=== PATIENT | male | born 1960 | race Caucasian/White ===

== ENCOUNTER 2017-10-10 20:02 | Emergency (ER) | payer SELFPAY ==
[2017-10-10] MEDS ORDERED: RINGERS SOLUTION,LACTATED 1,000 ML IV ONE (20:11)
--- NOTE | 2017-10-10 20:18 | ER Document Report ---
ED Cardiac - General Chief Complaint: Palpitations Stated Complaint: FAST HEARTRATE Time Seen by Provider: 10/10/17 20:11 Notes: Patient is a 57-year-old male with past medical history of tobacco abuse and obesity who presents with palpitations. Patient states for the past half hour he has had palpitations but denies any additional symptoms. He checked his heart rate at home and found it to be 180-200 bpm. He states he has had one similar episode in the past and was diagnosed with supraventricular tachycardia. He states at that time he had a received adenosine to break the rhythm. He denies any associated chest pain, shortness of breath nausea, vomiting or syncope since onset of palpitations. He does drink caffeinated beverages and does continue to smoke cigarettes but denies any increase in today 's amount versus is normal. He has not discussed with primary care doctor regarding today's symptoms or his history of SVT. He has no known history of coronary artery disease, pulmonary embolus or DVT. Past Medical History - General Information source: Patient - Social History Smoking Status: Current Every Day Smoker Cigarette use (# per day): Yes - 1 pack per day Smoking Education Provided: Yes - Smoking cessation counseling was provided for 4 minutes at the bedside Frequency of alcohol use: Occasional Drug Abuse: None Lives with: Spouse/Significant other Family History: Reviewed & Not Pertinent Review of Systems - Review of Systems Notes: Constitutional: Negative for fever. HENT: Negative for sore throat. Eyes: Negative for visual changes. Cardiovascular: Negative for chest pain. Positive for palpitations Respiratory: Negative for shortness of breath. Gastrointestinal: Negative for abdominal pain, vomiting or diarrhea. Genitourinary: Negative for dysuria. Musculoskeletal: Negative for back pain. Skin: Negative for rash. Neurological: Negative for headaches, weakness or numbness. 10 point ROS negative except as marked above and in HPI. Physical Exam - Vital signs Vitals: Pulse 200 H 10/10/17 20:02 Interpretation: Tachycardic Notes: PHYSICAL EXAMINATION: GENERAL: Well-appearing, well-nourished and in no acute distress. HEAD: Atraumatic, normocephalic. EYES: Pupils equal round and reactive to light, extraocular movements intact, sclera anicteric, conjunctiva are normal. ENT: nares patent, oropharynx clear without exudates. Moist mucous membranes. NECK: Normal range of motion, supple without lymphadenopathy LUNGS: Breath sounds clear to auscultation bilaterally and equal. No wheezes rales or rhonchi. HEART: Regular tachycardia without murmurs ABDOMEN: Soft, nontender, normoactive bowel sounds. No guarding, no rebound. No masses appreciated. EXTREMITIES: Normal range of motion, no pitting or edema. No cyanosis. NEUROLOGICAL: No focal neurological deficits. Moves all extremities spontaneously and on command. PSYCH: Normal mood, normal affect. SKIN: Warm, Dry, normal turgor, no rashes or lesions noted. Course - Re-evaluation Re-evalutation: 10/10/17 20:11 Patient presents with supraventricular tachycardia, initial rate in the low 200s. I was able to cardiovert the patient using a Valsalva maneuver which the patient blew into a 10 cc syringe and then was lied back abruptly and his legs were elevated. He did have conversion to sinus tachycardia thereafter. The patient did not have any additional symptoms other than palpitations. No symptoms to suggest ACS, acute pulmonary embolus, pneumothorax, or any other life and etiology of today's presentation. He does have history of the same. Will provide IV fluids, basic metabolic panel and if this is unremarkable plan for discharge home with follow-up recommendations and return precautions. The patient is very agreeable to this plan. - Vital Signs Vital signs: Temp Pulse Resp BP Pulse Ox 200 H 21 H 146/92 H 97 10/10/17 20:02 10/10/17 21:01 10/10/17 21:01 10/10/17 21:01 - Laboratory Result Diagrams: 10/10/17 20:03 Laboratory results interpreted by me: 10/10/17 20:03 Carbon Dioxide 20 L - EKG Interpretation by Me Additional EKG results interpreted by me: 10/10/17 20:14 Post Valsalva maneuver EKG: Sinus tachycardia. Rate 103. No ST elevations or depressions. QTC is 440. Discharge - Discharge Clinical Impression: Palpitations, Supraventricular tachycardia Condition: Good Disposition: HOME, SELF-CARE Additional Instructions: You were seen today for having palpitations. The rhythm that you were in today is called supraventricular tachycardia, often referred to as SVT. This is not a dangerous rhythm but can become problematic if you stay in it for too long. If you develop recurrent palpitations, you should bear down like you are trying to have a bowel movement as hard as you can. Alternatively, you could splash ice water in your face or get into a very cold shower. These maneuvers can sometimes break you out of this rhythm. If this does not work, please come to the emergency department immediately. You should follow-up with cardiology regarding today's visit. Please return to the emergency department immediately if you develop chest pain, shortness of breath, pass out, or have any other symptoms that are worrisome to you. Referrals: STEVEN JAIN MD [ACTIVE STAFF] - Follow up in 3-5 days
[2017-10-10 20:35] LABS: ANION GAP 17 (5-19); BLOOD UREA NITROGEN 15 mg/dL (7-20); CALCIUM 10.1 mg/dL (8.4-10.2); CARBON DIOXIDE 20 mmol/L (22-30); CHLORIDE 107 mmol/L (98-107); GLUCOSE 102 mg/dL (75-110); POTASSIUM 4.4 mmol/L (3.6-5.0); SODIUM 144.2 mmol/L (137-145)
[2017-10-10 21:11] VITALS: BP 146/92
--- NOTE | 2017-10-10 21:52 | EKG REPORT ---
SEVERITY:- OTHERWISE NORMAL ECG - SINUS TACHYCARDIA : Confirmed by: Leonela Helton MD 10-Oct-2017 21:51:36
== END 2017-10-10 21:24 | disposition home or self-care (01) ==
LOC: ER 20:02
DX: R00.2 Palpitations (principal); I47.1 Supraventricular tachycardia; F17.210 Nicotine dependence, cigarettes, uncomplicated; E66.9 Obesity, unspecified
CPT/HCPCS: 36415; 80048; 93005; 93010; 99285; 99406